=== PATIENT | male | born 1990 | race American Indian/Alaskan Native ===

== ENCOUNTER 2022-02-22 11:12 | Emergency (ER) | payer BC ==
[2022-02-22 13:10] VITALS: BP 125/94
--- NOTE | 2022-02-22 16:29 | Emergency Department Report ---
- General Chief Complaint: Fever Stated Complaint: FEVER Source: patient Mode of arrival: Ambulatory Limitations: No Limitations - History of Present Illness Initial Comments: Patient is a 31-year-old male with no past medical history who presents to the ED with complaint of acute onset persistent nasal and sinus congestion, diffuse body aches and pains, mild dry cough and generalized fatigue for the last 3 days. Patient states that she he has been taking [id number] medications with no relief. Patient states that no one else at home or closer to him tested positive for any COVID-19 viral infection. Patient denies dizziness, syncope, chest pain, shortness of breath, fever, chills, abdominal pain, dysuria, urinary frequency and urgency or headache and neck pain. MD Complaint: cough, nasal congestion, other (body aches and pains) -: days(s) (3) Severity: moderate Severity scale (0 -10): 4 Quality: sharp, aching Consistency: constant Improves With: nothing Worsens With: nothing Associated Symptoms: denies other symptoms, fever, chills, myalgias, diaphoresis, headache, rhinorrhea, nasal congestion, cough. denies: sore throat, stiff neck, chest pain, shortness of breath, abdominal pain, nausea, vomiting, diarrhea, dysuria, rash, weight loss, epistaxis, hoarseness, ear pain, other Treatments Prior to Arrival: "cold medicine" - Related Data Previous Rx's Medication Instructions Recorded Last Taken Type Ibuprofen [Motrin] 800 mg PO Q8HR PRN #30 tablet 02/22/22 Unknown Rx Allergies Allergy/AdvReac Type Severity Reaction Status Date / Time No Known Allergies Allergy Verified 02/22/22 16:15 ED Review of Systems ROS: Stated complaint: FEVER Other details as noted in HPI Constitutional: malaise, weakness. denies: chills, fever Eyes: denies: eye pain, eye discharge, vision change ENT: congestion. denies: ear pain, throat pain Respiratory: cough. denies: shortness of breath, wheezing Cardiovascular: denies: chest pain, palpitations Endocrine: no symptoms reported Gastrointestinal: denies: abdominal pain, nausea, vomiting, diarrhea Genitourinary: denies: urgency, dysuria Musculoskeletal: arthralgia, myalgia. denies: back pain, joint swelling Skin: denies: rash, lesions Neurological: denies: headache, weakness, paresthesias Psychiatric: denies: anxiety, depression Hematological/Lymphatic: denies: easy bleeding, easy bruising ED Past Medical Hx - Past Medical History Previous Medical History?: No - Surgical History Past Surgical History?: No - Medications Home Medications: Home Medications Medication Instructions Recorded Confirmed Last Taken Type Ibuprofen [Motrin] 800 mg PO Q8HR PRN #30 tablet 02/22/22 Unknown Rx ED Physical Exam - General Limitations: No Limitations General appearance: alert, in no apparent distress - Head Head exam: Present: atraumatic, normocephalic, normal inspection - Eye Eye exam: Present: normal appearance, PERRL, EOMI Pupils: Present: normal accommodation - ENT ENT exam: Present: normal exam, normal orophraynx, mucous membranes moist, TM's normal bilaterally, normal external ear exam - Neck Neck exam: Present: normal inspection, full ROM. Absent: tenderness - Respiratory Respiratory exam: Present: normal lung sounds bilaterally. Absent: respiratory distress, wheezes, rales, rhonchi, chest wall tenderness, accessory muscle use, decreased breath sounds, prolonged expiratory - Cardiovascular Cardiovascular Exam: Present: regular rate, normal rhythm, normal heart sounds. Absent: systolic murmur, diastolic murmur, rubs, gallop - GI/Abdominal GI/Abdominal exam: Present: soft, normal bowel sounds. Absent: tenderness, guarding, rigid, hyperactive bowel sounds, organomegaly, mass - Extremities Exam Extremities exam: Present: normal inspection, full ROM, normal capillary refill. Absent: tenderness, pedal edema, joint swelling - Back Exam Back exam: Present: normal inspection, full ROM. Absent: tenderness, CVA tenderness (R), CVA tenderness (L), muscle spasm, paraspinal tenderness, vertebral tenderness - Neurological Exam Neurological exam: Present: alert, oriented X3, CN II-XII intact, normal gait, reflexes normal - Psychiatric Psychiatric exam: Present: normal affect, normal mood - Skin Skin exam: Present: warm, dry, intact, normal color. Absent: rash ED Course Vital Signs 02/22/22 02/22/22 13:01 13:03 Temperature 99.1 F 99.1 F Pulse Rate 82 Respiratory 18 Rate Blood Pressure 125/94 O2 Sat by Pulse 99 Oximetry ED Medical Decision Making - Medical Decision Making This is a 31-year-old male with no past medical history who presents to the ED with complaint of acute onset persistent nasal and sinus congestion, diffuse body aches and pains, mild dry cough and generalized fatigue for the last 3 days. Patient states that she he has been taking [id number] medications with no relief. Patient states that no one else at home or closer to him tested positive for any COVID-19 viral infection. In the ED, patient is alert and oriented x3 and is not in any distress. Patient is hemodynamically stable. Patient however declined chest x-ray in the ED. Patient was treated for pain in the ED and discharged home and advised to follow-up with his primary care physician in 7 to 10 days for reevaluation. Patient was also encouraged to obtain a COVID-19 diagnostic test at any of the outpatient facilities. Patient was advised to return to the ED immediately if symptoms get worse. - Differential Diagnosis Viral syndrome; URI; bronchitis; pneumonia; Critical care attestation.: If time is entered above; I have spent that time in minutes in the direct care of this critically ill patient, excluding procedure time. ED Disposition Clinical Impression: Flu-like symptoms, Viral URI with cough Disposition: 01 HOME / SELF CARE / HOMELESS Is pt being admited?: No Does the pt Need Aspirin: No Condition: Stable Instructions: Viral Respiratory Infection, [id number], Cough, Adult, [id number] Additional Instructions: Take medication with food, drink plenty of fluids. Ensure that you get tested for COVID-19 viral infection at any of the outpatient facilities. Follow-up with your primary care physician in 7 to 10 days for reevaluation. Return to the ED immediately if symptoms get worse. Prescriptions: Ibuprofen [Motrin] 800 mg PO Q8HR PRN #30 tablet PRN Reason: Pain , Severe (7-10) Referrals: [facility] [Provider Group] - 7-10 days Forms: Work/School Release Form(ED) Time of Disposition: 16:23 Print Language: YI
[2022-02-22] MEDS ORDERED: IBUPROFEN 600 MG TAB PO ONE (17:20)
[2022-02-22] MEDS ORDERED: ACETAMINOPHEN 500 MG TAB PO ONE (17:20)
== END 2022-02-22 17:32 | disposition home or self-care (01) ==
LOC: ED 11:12
DX: J11.1 Influenza due to unidentified influenza virus with other respiratory manifestations (principal); R05.9 Cough, unspecified
CPT/HCPCS: 99282